=== PATIENT | female | born 1960 | race Caucasian/White ===

== ENCOUNTER 2021-01-13 13:51 | Emergency (ER) | payer OTHER ==
[~2021-01-13] VITALS: Ht 162.6 cm; Wt 106.0 kg
[2021-01-13 14:07] VITALS: BP 163/72
== END 2021-01-13 18:43 | disposition home or self-care (01) ==
LOC: ER 13:52
DX: S80.12XA Contusion of left lower leg, initial encounter (principal); X58.XXXA Exposure to other specified factors, initial encounter; Y93.89 Activity, other specified; Y92.89 Other specified places as the place of occurrence of the external cause; Y99.8 Other external cause status
CPT/HCPCS: 93971; 99284

== ENCOUNTER 2022-11-09 06:53 | Day surgery (SDC) | payer OTHER ==
[2022-11-07 10:39] LABS: BASOPHILS # (AUTO) 0.2 X10'3 (0-0.2); NEUTROPHILS # (AUTO) 11.5 X10'3 (1.8-7.7)
[2022-11-07 10:40] LABS: BASOPHILS % (AUTO) 1.1 % (0-1); EOSINOPHILS # (AUTO) 0.4 X10'3 (0-0.9); EOSINOPHILS % (AUTO) 2.9 % (0-6); LYMPHOCYTES # (AUTO) 1.1 X10'3 (1.1-4.8); MEAN CORPUSCULAR HEMOGLOBIN 27.4 PG (27.0-31.0); MEAN CORPUSCULAR HGB CONC 32.4 g/dL (33.0-36.5); MEAN CORPUSCULAR VOLUME 84.4 FL (78-98); MEAN PLATELET VOLUME 7.7 FL (7.4-10.4); MONOCYTES % (AUTO) 7.2 % (2-12); NEUTROPHILS % (AUTO) 80.8 % (42-75); PRE OP PLATELET COUNT 704 X10'3 (140-440); RED BLOOD COUNT 7.33 X10'6 (4.20-5.60); RED CELL DISTRIBUTION WIDTH 19.1 % (11.5-14.5)
[2022-11-07 10:42] LABS: CLARITY,URINE CLEAR (Clear); COLOR,URINE YELLOW (Yellow); GLUCOSE, URINE NEGATIVE (Neg); KETONES,URINE NEGATIVE (Neg); LEUKOCYTE ESTERASE ,URINE TRACE (Neg); NITRITES, URINE NEGATIVE (Neg); OCCULT BLOOD,URINE TRACE-INTACT (Neg); PROTEIN,URINE NEGATIVE (Neg); UROBILINOGEN,URINE 0.2 E.U/dL (0.2-1.0)
[2022-11-07 10:44] LABS: PRE OP HEMATOCRIT 61.9 % (35.0-45.0); PRE OP HEMOGLOBIN 20.1 g/dL (12.0-16.0)
[2022-11-07 10:51] LABS: ALBUMIN 3.6 G/DL (3.4-5.0); ALBUMIN/GLOBULIN RATIO 0.9 (1.1-1.5); ALKALINE PHOSPHATASE 162 IU/L (46-116); BLOOD UREA NITROGEN 18 MG/DL (7-18); BUN/CREATININE RATIO 25.7 (6.6-38.0); CALCIUM 9.1 MG/DL (8.5-10.1); CHLORIDE 106 MMOL/L (99-107); PRE OP ALT 25 U/L (30-65); PRE OP ANION GAP 9 (8-16); PRE OP AST 24 U/L (10-37); PRE OP BILIRUB, TOTAL 0.4 MG/DL (0.0-1.0); PRE OP GLUCOSE 91 MG/DL (70-104); PRE OP POTASSIUM 4.2 MMOL/L (3.4-5.1); PRE OP SODIUM 141 MMOL/L (135-145); TOTAL CARBON DIOXIDE 26.4 MMOL/L (24-32); TOTAL PROTEIN 7.6 G/DL (6.4-8.2); eGFR 85 ML/MIN
[2022-11-07 10:54] LABS: UA COLLECTION TYPE CLN CATCH MIDSTREAM
[2022-11-07 10:55] LABS: BACTERIA,URINE FEW /HPF (Neg); MUCUS STRANDS NONE SEEN /LPF (Neg); RBC,URINE 0-2 /HPF (0-2); SQUAMOUS EPITHELIAL CELL,UR FEW /LPF (FEW)
[2022-11-07 11:16] LABS: ANISOCYTOSIS 2+; LARGE PLATELETS FEW; PLATELET ESTIMATE INCREASED
[~2022-11-09] VITALS: Ht 165.1 cm; Wt 108.0 kg
[2022-11-09] VITALS (14 sets, daily range): BP systolic 130–191; BP diastolic 65–103
[~2022-11-09 06:53] MED LIST: NO HOME MEDS; cefazolin 2gm/D5W 100mL 100 ML IV ONE; famotidine 20mg tablet PO ONE; ringers solution, lacted 1,000 ML IV SCH
[2022-11-09 09:20] LABS: BASOPHILS # (AUTO) 0.1 X10'3 (0-0.2); BASOPHILS % (AUTO) 1.1 % (0-1); EOSINOPHILS # (AUTO) 0.5 X10'3 (0-0.9); EOSINOPHILS % (AUTO) 3.8 % (0-6); LYMPHOCYTES # (AUTO) 1.2 X10'3 (1.1-4.8); LYMPHOCYTES % (AUTO) 9.3 % (21-51); MEAN CORPUSCULAR HEMOGLOBIN 27.3 PG (27.0-31.0); MEAN CORPUSCULAR HGB CONC 32.4 g/dL (33.0-36.5); MEAN CORPUSCULAR VOLUME 84.4 FL (78-98); MEAN PLATELET VOLUME 7.7 FL (7.4-10.4); MONOCYTES # (AUTO) 0.9 X10'3 (0-0.9); MONOCYTES % (AUTO) 6.8 % (2-12); NEUTROPHILS # (AUTO) 9.9 X10'3 (1.8-7.7); PLATELET COUNT 697 X10'3 (140-440); RED BLOOD COUNT 7.67 X10'6 (4.20-5.60); RED CELL DISTRIBUTION WIDTH 19.2 % (11.5-14.5); WHITE BLOOD COUNT 12.5 X10'3 (4.5-11.0)
[2022-11-09 09:24] LABS: HEMATOCRIT 64.7 % (35.0-45.0)
[2022-11-09] MEDS ORDERED: BUPIVAcaine/PF 2.5 mg/ml (0.25%) 30ml vial ONE (09:37)
[2022-11-09] MEDS ORDERED: heparin, porcine 5000 units/ml vial SQ ONE (09:40)
[2022-11-09] MEDS ORDERED: heparin, porcine 5000 units/ml vial ONE (09:41)
[2022-11-09] MEDS ORDERED: glycopyrrolate 0.2mg/ml inj ONE (09:48)
[2022-11-09] MEDS ORDERED: neostigmine methylsulfate 1 MG/ML 10ml vial ONE (09:48)
[2022-11-09] MEDS ORDERED: sevoflurane 250ml liquid IH ONE (09:48)
[2022-11-09] MEDS ORDERED: dexamethasone sod phosphate 10mg/ml inj ONE (09:48)
[2022-11-09] MEDS ORDERED: meperidine/PF 25mg/ml syringe IV PRN ×3 (09:50)
[2022-11-09] MEDS ORDERED: ondansetron/PF 4mg/2ml inj IV PRN (09:50)
[2022-11-09] MEDS ORDERED: proCHLORperazine 10 MG/2 ml inj IV PRN (09:50)
[2022-11-09] MEDS ORDERED: morphine 2 MG/ML inj. syringe IV PRN (09:50)
[2022-11-09] MEDS ORDERED: morphine 4 MG/ML inj SYRINge IV PRN (09:50)
[2022-11-09] MEDS ORDERED: ringers solution, lacted 1,000 ML IV SCH (09:50)
[2022-11-09] MEDS ORDERED: fentaNYL/PF 50MCG/1 ML 2ML syringe ONE (09:59)
[2022-11-09] MEDS ORDERED: midazolam 1 mg/ML 2ml injection ONE (09:59)
[2022-11-09] MEDS ORDERED: rocuronium 10mg/ml inj IV ONE (10:07)
[2022-11-09] MEDS ORDERED: propofol inj 20 ML IV ONE (10:07)
[2022-11-09] MEDS ORDERED: LIDOcaine 1%/PF 5ML 10 MG/ML VIAL ONE (10:07)
[2022-11-09] MEDS ORDERED: ondansetron/PF 4mg/2ml inj ONE (10:10)
[2022-11-09] MEDS ORDERED: acetaminophen 1,000mg/100ml IV 100 ML IV ONE (10:16)
[2022-11-09 10:19] LABS: ANISOCYTOSIS 2+; LARGE PLATELETS FEW; PLATELET ESTIMATE INCREASED
[2022-11-09] MEDS ORDERED: meperidine/PF 25mg/ml syringe ONE (10:40)
--- NOTE | 2022-11-09 10:40 | NUR ---
PT H&H CRITICALLY HIGH ON PRE-OP DRAW, RE-DRAW Addendum: 11/09/22 at 1122 by Shivani Arriola RN RE-DRAW PERFORMED DOS, H&H REMAINS CRITICALLY HIGH. MD AND ANESTHESIA AWARE. ORDER RECEIVED TO ADMINISTER 5,000U HEPARIN SQ BEFORE PT GOES TO OR.
[2022-11-09] MEDS ORDERED: metoprolol tartrate 1mg/ml inj IV ONE (10:41)
[2022-11-09] MEDS ORDERED: ketorolac trometh. 30mg/ml inj. ONE (11:14)
--- NOTE | 2022-11-09 11:32 | NUR ---
Received from OR via [facility] , accompanied by Anesthesiologist and report given by HELEN Anesthesiologist. PATIENT WAKING UP, NO S/S OF PAIN, V/S WNL, PIV 20G LEFT HAND, DERMABONDED LAPS SITES CLOSED C/D/I TO ABDOMEN. Addendum: 11/09/22 at 1146 by Rei Robb RN Amended: Links added.
[2022-11-09] MEDS ORDERED: labetalol 20mg/4ml (5mg/ml) syringe IV PRN (11:40)
[2022-11-09] MEDS ORDERED: enalaprilat dihydrate 2.5mg/2ml vial IV PRN (11:40)
[2022-11-09] MEDS ORDERED: HYDROcodone/acetaminophen 10/325mg tab PO ONE (13:15)
--- NOTE | 2022-11-09 13:42 | NUR ---
ALL DISCHARGE CRITERIA HAS BEEN MET. VSS, PAIN AT A TOLERABLE LEVEL, ABLE TO SAFELY AMBULATE AND TRANSFER SELF. IV TAKEN OUT WITHOUT ANY COMPLICATIONS. ALL DISCHARGE INSTRUCTIONS COVERED WITH PATIENT AND ALL QUESTIONS ANSWERED. PATIENT TAKEN OUT VIA WHEELCHAIR WITH ALL BELONGINGS TO PERSONAL VEHICLE WHERE FAMILY DROVE PATIENT HOME Addendum: 11/09/22 at 1344 by Rei Robb RN Amended: Links added.
== END 2022-11-09 13:42 | disposition home or self-care (01) ==
LOC: PAS 06:53
PROVIDERS: ATTEND Surgery
DX: K80.00 Calculus of gallbladder with acute cholecystitis without obstruction (principal); E66.01 Morbid (severe) obesity due to excess calories; Z68.41 Body mass index [BMI] 40.0-44.9, adult; J45.909 Unspecified asthma, uncomplicated; M19.90 Unspecified osteoarthritis, unspecified site; D75.1 Secondary polycythemia; Z79.899 Other long term (current) drug therapy
CPT/HCPCS: 36415; 47562; 80053; 81001; 82948; 85025; 87088; 93005; J0131; J0690; J1100; J1644; J1885; J2175; J2250; J2405; J2704; J2710; J3010; J3490; J7030; J7120; Z7506; Z7508; Z7512; 85008; A4215; A4618; A7000